=== PATIENT | female | born 1965 | race Two or more races ===

== ENCOUNTER → 2020-06-03 14:22 | Outpatient (BNVA) | payer OTHER, SELFPAY | PROVIDERS: Visit Provider Physician Assistant | DX: S39.012A Strain of muscle, fascia and tendon of lower back, initial encounter (principal); X58.XXXA Exposure to other specified factors, initial encounter | CPT/HCPCS: 99202 ==

== ENCOUNTER → 2020-06-06 15:16 | Outpatient (BNVA) | payer OTHER, SELFPAY | PROVIDERS: Visit Provider Physician Assistant Medical | DX: S39.012A Strain of muscle, fascia and tendon of lower back, initial encounter (principal); X58.XXXA Exposure to other specified factors, initial encounter | CPT/HCPCS: 99213 ==

== ENCOUNTER 2021-04-15 11:01 | Outpatient (REF) | payer OTHER, SELFPAY ==
[2021-04-15 12:38] LABS: COVID-19 Test Positive (Negative); IDNOW Serial# 16C4AD1C
== END 2021-04-15 11:02 | disposition home or self-care (01) ==
LOC: HO.LAB 11:01
PROVIDERS: Visit Provider Internal Medicine
DX: Z20.822 Contact with and (suspected) exposure to COVID-19 (principal)
CPT/HCPCS: 36415; 87635; C9803

== ENCOUNTER 2022-04-13 08:03 | Emergency (ER) | payer OTHER, SELFPAY ==
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
[2022-04-13 08:32] VITALS: BP 141/98; PULSE 75; RESP 18; TEMP 36.4; O2SAT 98; BMI 29.2
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
--- OUTSIDE RECORDS SUMMARY | 2022-04-13 10:13 | XMS_ITS | Continuity of Care Document ---
:1965 Author Organization [facility] enter/[facility] [place] Address Unavailable , Care Team Providers Name Role Phone Not on Staff, PCP Primary Care Physician Unavailable Encounter [facility] [place] Date(s): 04/07/21 - 05/07/21 [facility] Allergies, Adverse Reactions, Alerts Substance Reaction Severity Status aspirin rash Active Immunizations Given and Recorded Vaccine Date Status Refusal Reason influenza virus vaccine, inactivated1 01/22/15 Given influenza virus vaccine, inactivated2 02/03/12 Given influenza virus vaccine, inactivated3 03/29/11 Given influenza virus vaccine, inactivated4 01/29/09 Given influenza virus vaccine, inactivated5 03/26/08 Given influenza virus vaccine, inactivated6 03/20/03 Given influenza virus vaccine, inactivated7 01/18/02 Given influenza virus vaccine, inactivated8 03/20/01 Given tetanus/diphtheria/pertussis, acel(Tdap)9 09/15/11 Given hepatitis B adult [id number] 08/04/04 Given hepatitis B adult [id number] 06/18/04 Given hepatitis B adult [id number] 06/18/04 Given pneumococcal 23-valent 06/18/04 Given 1Result Comment: [01/22/2015] Ordered by [id number] Note: VIS10/18/11 [id number] Admin Note: VIS01/17/09 [id number] Note: VIS 11/09/07 [id number] Note: vis 11/09/07, [id number] Note: administered by [id number] Note: administered by RN8 Admin Note: administered by [id number] Note: VIS 09/01/06 [id number] Note: administered by [id number] Note: administered by [id number] Note: administered by [id number] Note: ADMINISTERED BY R.N Medications albuterol CFC free 90 mcg/inh inhalation aerosol 2 puffs, Inhalation, 4 times a day, PRN Wheezing/Shortness of Breath, # 18 Gm, 1 Refills, Maintenance, 07/09/14 10:47:56, Aerosol, 2 puffs Inhalation 4 times a day,PRN:Wheezing/Shortness of Breath Start Date: 07/09/14 Status: Ordered Problem List Condition Effective Dates Status Health Status Informant Asthma(Confirmed)1 Active Ex-cigarette smoker(Confirmed) 04/17/12 Active 1PFTs: 11-30-2004 Social History Social History Type Response Smoking Status Never smoker entered on: 06/14/14 Sex
== END 2022-04-13 10:33 | disposition home or self-care (01) ==
PROVIDERS: Emergency Provider Student in an Organized Health Care Education/Training Program
DX: S16.1XXA Strain of muscle, fascia and tendon at neck level, initial encounter (principal); R51.9 Headache, unspecified; M54.2 Cervicalgia; V44.5XXA Car driver injured in collision with heavy transport vehicle or bus in traffic accident, initial encounter; Y93.9 Activity, unspecified; Y92.410 Unspecified street and highway as the place of occurrence of the external cause; Y99.9 Unspecified external cause status
CPT/HCPCS: 70450; 72125; 99283; 99284

== ENCOUNTER 2022-08-28 21:02 | Emergency (ER) | payer OTHER, SELFPAY ==
--- NOTE | 2022-08-28 | ECG_ITS ---
Test Reason : chest pain Blood Pressure : / mmHG Vent. Rate : 071 BPM Atrial Rate : 071 BPM P-R Int : 128 ms QRS Dur : 074 ms QT Int : 376 ms P-R-T Axes : 056 010 036 degrees QTc Int : 408 ms Normal sinus rhythm Possible Left atrial enlargement Borderline ECG When compared with ECG of 14-FEB-2019 10:45, No significant change was found Referred By: Generic ED Physician Electronically Signed By:AIDA OROSCO
--- NOTE | ~2022-08-28 | XR_ITS ---
EXAMINATION: XR CHEST CLINICAL INFORMATION: Chest pain COMPARISON: None available. TECHNIQUE: Frontal view of the chest was obtained. FINDINGS: The lungs are clear with no focal consolidation. No evidence of pneumothorax, pulmonary edema, or pleural effusions. The cardiomediastinal silhouette is unremarkable. No acute osseous findings. XR/XR chest 1V IMPRESSION: No acute cardiopulmonary findings.
[2022-08-28 21:13] VITALS: BP 122/86; PULSE 73; RESP 18; TEMP 36.4; O2SAT 99; BMI 28.3
[2022-08-28 21:36] LABS: MANUAL DIFF FLAG NO
[2022-08-28 21:39] LABS: Basophils Percent Auto 0.4 % (0-2); Eosinophils Absolute Auto 0.4 X10*3/uL (0.0-0.4); Eosinophils Percent Auto 3.8 % (0-4); Hematocrit 36.5 % (37.0-47.0); Hemoglobin 12.4 g/dl (12.0-16.0); Imm Gran Abs Auto 0.03 X10*3/uL (0.00-0.03); Imm Gran Pct Auto 0.3 % (0.0-0.4); Lymphocytes Absolute Auto 3.3 X10*3/uL (1.2-4.9); Lymphocytes Percent Auto 33.1 % (20-40); Mean Corpuscular Volume 82.4 fL (80.0-98.0); Mean Platelet Volume 11.9 fL (9.4-12.3); Monocytes Absolute Auto 0.8 X10*3/uL (0.1-1.2); Monocytes Percent Auto 7.5 % (2-11); Neutrophils Absolute Auto 5.5 x10*3/uL (2.0-8.3); Neutrophils Percent Auto 54.9 % (45-73); Platelet Count 250 X10*3/uL (160-400); Red Blood Count 4.43 X10*6/uL (4.20-5.50); Red Cell Distribution Width 13.2 % (11.0-16.0)
[2022-08-28 21:52] LABS: Anion Gap 12 (12-20); Blood Urea Nitrogen 16 mg/dL (9-16); Calcium 9.3 mg/dL (8.4-10.2); Carbon Dioxide 27 mmol/L (22-29); Chloride 105 mmol/L (96-108); Creatinine Clr Calc Pharmacy 73.1; Estimated Glomerular Filt Rate > 60; Glucose Random 121 mg/dL (60-115); Potassium 3.8 mmol/L (3.3-5.1); Sodium 140 mmol/L (135-145)
--- NOTE | 2022-08-28 21:57 | ED_ITS ---
HPI - Chest Pain General Chief Complaint: Chest Pain Stated Complaint: Chest pain/left arm Time Seen by Provider: 08/28/22 21:42 History of Present Illness HPI narrative: Patient is a 57-year-old female with a history diabetes presents today with having chest pain since approximately 10:00. The pain is constant it is mid chest. Question radiation. No shortness of breath no diaphoresis. Feels a tightness in the chest. Not made worse with deep breath. No leg swelling. No history of blood clots. Patient is from home. No history of risk stratification done in the past. The pain is constant not affected by movement. Not affected by exertion. No history of diabetes, hypertension, high cholesterol. No history of smoking no history of heart attack in the past Related Data Previous Rx's Medication Instructions Recorded cyclobenzaprine 10 mg tablet 10 mg PO TID PRN muscle spasm #14 04/13/22 tabs prednisone 20 mg tablet 40 mg PO DAILY #6 tabs 04/13/22 pantoprazole 40 mg tablet,delayed 40 mg PO DAILY #14 tabs 08/29/22 release (Protonix) Allergies Allergy/AdvReac Type Severity Reaction Status Date / Time aspirin [Aspirin] Allergy Mild RASH Verified 08/28/22 21:26 Review of Systems Review of Systems: Positive chest pain Yes all other systems are reviewed and are negative [facility] Past Medical History Attestation statement: The following information was validated with the patient. Social History Social History Advance Directives: No Advance Directives Information Provided: Yes Physical Exam Vital Signs: Vital Signs: Last Vital Signs Temp 97.9 F 08/28/22 23:23 Pulse 67 08/28/22 23:23 Resp 16 08/28/22 23:23 BP 106/72 08/28/22 23:23 Pulse Ox 97 08/28/22 23:23 O2 Del Method Room Air 08/28/22 23:23 BMI result Body Mass Index 28.3 Appearance: Alert. Oriented X3. No acute distress. Eyes: Pupils equal, round and reactive to light. ENT: Pharynx normal. Neck: Normal inspection. Neck supple. No lymph nodes noted. No crepitus CVS: Normal heart rate and rhythm. Pulses normal. Normal S1 and S2 Respiratory: No respiratory distress. Breath sounds normal. No Wheezing. No rales Abdomen: Soft and nontender. No rigidity. No distention. good BS x4 Skin: Skin warm and dry. Normal skin color. Normal skin turgor. Extremities: No lower extremity edema. Neurovascular intact to all extremities. No Lacerations. No Rash Neuro: Oriented X 3. No motor deficit. No sensory deficit. Moving all extermities. No slurred speech Medications Administered Discontinued Medications Generic Name Dose Route Start Last Admin Trade Name Freq PRN Reason Stop Dose Admin Al Hydroxide/Mg Hydroxide 30 ml 08/28/22 22:15 08/28/22 22:33 Magnesium Hydrox/Alum Hydrox 30 Ml Oral.Susp PO 08/28/22 22:16 30 ml ONCE ONE Administration Medical Decision Making Medical Decision Making [facility] Narrative: My interpretation patient's EKG showed a sinus pattern heart rate is 70 RI QRS QT within normal limits there is no acute ST segment elevation noted. Patient's chest pain atypical for ACS. Two sets of cardiac enzymes were negative. In the setting of normal EKG. No significant cardiac risk. Patient' s heart score less than 3. Will have patient follow-up on an outpatient basis. Patient's chest x-ray showed no evidence of pneumonia pneumothorax. Patient's history not consistent with having pulmonary emboli. Will discharge patient home. Lab Data [facility] Lab Attestation statement: I reviewed the patient's lab results. 08/28/22 21:26 08/28/22 21:26 Labs: Lab Results 08/28/22 08/28/22 08/28/22 Range/Units 21:26 21:26 21:26 WBC 10.0 (4.8-10.8) X10*3/uL RBC 4.43 (4.20-5.50) X10*6/uL Hgb 12.4 (12.0-16.0) g/dl Hct 36.5 L (37.0-47.0) % MCV 82.4 (80.0-98.0) fL MCH 28.0 (27.0-33.0) pg MCHC 34.0 (31.0-35.0) g/dl RDW 13.2 (11.0-16.0) % Plt Count 250 (160-400) X10*3/uL MPV 11.9 (9.4-12.3) fL Immature Gran % (Auto) 0.3 (0.0-0.4) % Neut % (Auto) 54.9 (45-73) % Lymph % (Auto) 33.1 (20-40) % [place] % (Auto) 7.5 (2-11) % Eos % (Auto) 3.8 (0-4) % Baso % (Auto) 0.4 (0-2) % Lymph # (Auto) 3.3 (1.2-4.9) X10*3/uL [place] # (Auto) 0.8 (0.1-1.2) X10*3/uL Eos # (Auto) 0.4 (0.0-0.4) X10*3/uL Baso # (Auto) 0.0 (0.0-0.2) X10*3/uL Abs Immat Gran (auto) 0.03 (0.00-0.03) X10*3/uL Absolute Neuts (auto) 5.5 (2.0-8.3) x10*3/uL Absolute Nucleated RBC 0.000 (0.0-0.012) X10*3/uL Nucleated RBC % (auto) 0.0 (0.0-0.2) /100WBC Sodium 140 (135-145) mmol/L Potassium 3.8 (3.3-5.1) mmol/L Chloride 105 (96-108) mmol/L Carbon Dioxide 27 (22-29) mmol/L Anion Gap 12 (12-20) BUN 16 (9-16) mg/dL Creatinine 0.82 (0.5-1.4) mg/dL Estim Creat Clear Calc 73.1 Estimated GFR > 60 POC Glucose (60-115) mg/dL Random Glucose 121 H (60-115) mg/dL Calcium 9.3 (8.4-10.2) mg/dL Troponin I High Sens < 2.7 (<3.5-17.0) ng/L 08/28/22 08/28/22 Range/Units 22:08 23:31 WBC (4.8-10.8) X10*3/uL RBC (4.20-5.50) X10*6/uL Hgb (12.0-16.0) g/dl Hct (37.0-47.0) % MCV (80.0-98.0) fL MCH (27.0-33.0) pg MCHC (31.0-35.0) g/dl RDW (11.0-16.0) % Plt Count (160-400) X10*3/uL MPV (9.4-12.3) fL Immature Gran % (Auto) (0.0-0.4) % Neut % (Auto) (45-73) % Lymph % (Auto) (20-40) % [place] % (Auto) (2-11) % Eos % (Auto) (0-4) % Baso % (Auto) (0-2) % Lymph # (Auto) (1.2-4.9) X10*3/uL [place] # (Auto) (0.1-1.2) X10*3/uL Eos # (Auto) (0.0-0.4) X10*3/uL Baso # (Auto) (0.0-0.2) X10*3/uL Abs Immat Gran (auto) (0.00-0.03) X10*3/uL Absolute Neuts (auto) (2.0-8.3) x10*3/uL Absolute Nucleated RBC (0.0-0.012) X10*3/uL Nucleated RBC % (auto) (0.0-0.2) /100WBC Sodium (135-145) mmol/L Potassium (3.3-5.1) mmol/L Chloride (96-108) mmol/L Carbon Dioxide (22-29) mmol/L Anion Gap (12-20) BUN (9-16) mg/dL Creatinine (0.5-1.4) mg/dL Estim Creat Clear Calc Estimated GFR POC Glucose 132 H (60-115) mg/dL Random Glucose (60-115) mg/dL Calcium (8.4-10.2) mg/dL Troponin I High Sens < 2.7 (<3.5-17.0) ng/L Independent Interpretation I performed an independent interpretation of an: EKG Interpretation: My interpretation patient's EKG showed a sinus pattern heart rate is 70 RI QRS QT within normal limits there is no acute ST segment elevation Radiology Impression Discussion of test interpretation with radiology: I have reviewed the radiologist's reading. External Record Review External record reviewed: Inpatient record Discharge Plan Discharge Clinical Impression: Chest pain Patient Disposition: Home, Self-Care Instructions: Chest Pain (DC) Prescriptions: New pantoprazole [Protonix] 40 mg tablet,delayed release (DR/EC) 40 mg PO DAILY Qty: 14 0RF No Action cyclobenzaprine 10 mg tablet 10 mg PO TID PRN (Reason: muscle spasm) Qty: 14 0RF prednisone 20 mg tablet 40 mg PO DAILY Qty: 6 0RF Referrals: Candido Mirza MD [Physician] - 08/31/22
[2022-08-28 22:05] VITALS: BP 113/78; PULSE 70; RESP 18; TEMP 36.6; O2SAT 98
[2022-08-28 22:13] LABS: Glucose, Whole Blood 132 mg/dL (60-115)
[2022-08-28 22:13] LABS: Troponin-I High Sensitivity < 2.7 ng/L (<3.5-17.0)
[2022-08-28] MEDS: Magnesium Hydrox/Alum Hydrox 30 ML ORAL.SUSP PO (22:33)
[2022-08-28 23:23] VITALS: BP 106/72; PULSE 67; RESP 16; TEMP 36.6; O2SAT 97
[2022-08-29 00:15] LABS: Troponin-I High Sensitivity < 2.7 ng/L (<3.5-17.0)
== END 2022-08-29 00:41 | disposition home or self-care (01) ==
PROVIDERS: Emergency Provider Emergency Medicine Emergency Medical Services
DX: R07.9 Chest pain, unspecified (principal); Z79.899 Other long term (current) drug therapy
CPT/HCPCS: 36415; 71045; 80048; 82947; 84484; 85025; 93005; 99283; 99284

== ENCOUNTER 2023-11-06 12:59 | Emergency (ER) | payer OTHER, SELFPAY ==
--- NOTE | ~2023-11-06 | CT_ITS ---
EXAMINATION: CT ABDOMEN AND PELVIS WITHOUT CONTRAST CLINICAL INFORMATION: Left lower quadrant and left flank pain COMPARISON: None available. TECHNIQUE: Multidetector volumetric imaging was performed from the superior aspect of the liver through the pubic symphysis. Sagittal and coronal reformatted images were obtained on the technologist's workstation. This CT examination was performed using dose optimization techniques as appropriate, variously including the following: *Automated exposure control *Adjustment of mA and/or kV according to patient size (this includes techniques or standardized protocols for targeted exams where dose is matched to indication/reason for exam; i.e. extremities or head) *Use of iterative reconstruction technique DLP: 506 mGy-cm FINDINGS: LUNG BASES: The visualized lung bases are unremarkable. LIVER, GALLBLADDER, AND BILIARY TREE: The liver is normal in size, shape, and attenuation. No focal hepatic lesion or biliary ductal dilatation is present. The gallbladder is unremarkable with no evidence of radiopaque gallstones, gallbladder wall thickening, or obvious pericholecystic inflammatory changes. PANCREAS: Unremarkable. SPLEEN: Unremarkable. ADRENAL GLANDS: Unremarkable. KIDNEYS AND URETERS: There is congenital crossed fused renal ectopia with kidneys seen in the right abdomen. The lower pole moiety ureter crosses into the left side of the abdomen/pelvis entering into the left side of the urinary bladder. No hydronephrosis, hydroureter, or calculi seen. No perinephric stranding. BLADDER: Decompressed. No renal calcifications GASTROINTESTINAL TRACT: The small and large bowel are unremarkable. The appendix is unremarkable. There is mild mesenteric fat stranding within the left upper quadrant of the abdomen with nonspecific small mesenteric lymph nodes. ABDOMINAL WALL: No significant hernia is appreciated. LYMPH NODES: Normal. VASCULAR: Unremarkable. PELVIC VISCERA: The uterus and adnexa are unremarkable. OSSEOUS STRUCTURES: Unremarkable. CT/CT abdomen pelvis wo IV con IMPRESSION: 1. No acute process. 2. 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 The lower pole moiety ureter crosses into the left side of the abdomen/pelvis entering into the left side of the urinary bladder. No hydronephrosis or nephrolithiasis. 3. Mild mesenteric fat stranding in the left upper quadrant of the abdomen with small mesenteric lymph nodes. Findings are nonspecific but can be seen in the setting of mesenteric panniculitis.
[2023-11-06 13:06] VITALS: BP 138/87; PULSE 84; RESP 17; TEMP 36.1; O2SAT 93; BMI 28.9
--- NOTE | 2023-11-06 13:08 | ED.GENADULT ---
HPI - General Adult General Chief complaint: Urogenital-Female Stated complaint: ?uti Time Seen by Provider: 11/06/23 13:27 Source: patient Mode of arrival: ambulatory Limitations: no limitations History of Present Illness ED Provider: leonides ISLAS narrative: Patient is a 58-year-old female presenting to the emergency department with complaint of lower back pain radiating to left lower quadrant of abdomen for the past 2 days. She went to urgent care yesterday and was diagnosed with a muscle strain, prescribed a muscle relaxer and advised to use NSAIDs. Patient states that she asked for urinalysis at that appointment but was refused by provider. States she took the muscle relaxer and ibuprofen without any relief of pain. She tested herself with a home urine testing kit which showed she was positive for UTI. She denies any fevers. Denies any nausea or vomiting. Reports history of kidney stones in the past. Reports only urinary symptom is that her urine is darker than normal. MD complaint: back and abdominal pain Onset (ago): day(s) Location: back Radiation: abdomen Severity: severe Severity scale (1-10): 7 Quality: sharp Pain Consistency: constant Relieving factors: none Exacerbating factors: other (palpation) Treatments prior to arrival: NSAID and other Related Data Previous Rx's ?Medication ?Instructions ?Recorded cyclobenzaprine 10 mg tablet 10 mg PO TID PRN muscle spasm #14 04/13/22 tabs prednisone 20 mg tablet 40 mg (2 x 20 mg) PO DAILY #6 tabs 04/13/22 pantoprazole 40 mg tablet,delayed 40 mg PO DAILY #14 tabs 08/29/22 release (Protonix) lidocaine 5 % topical patch 1 patch topical DAILY #15 ea 11/06/23 Allergies Allergy/AdvReac Type Severity Reaction Status Date / Time aspirin [Aspirin] Allergy Mild RASH Verified 11/06/23 13:10 Review of Systems Review of Systems: As per HPI. Yes all other systems are reviewed and are negative Constitutional: Constitutional: Reports as per HPI [facility] Social History Social History Advance Directives: No Advance Directives Information Provided: No Do you have a plan to hurt others: No Plan Physical Exam ED Vital Signs: Vital Signs - 24 hr 11/06/23 13:06 Temperature 96.9 F Pulse Rate 84 Respiratory Rate 17 Blood Pressure 138/87 Pulse Oximetry 93 Oxygen Delivery Method Room Air BMI result Body Mass Index 28.9 Vital signs have been reviewed and appear to be correct. Blood pressure normal. Heart rate normal. Respiratory rate normal. Temperature normal. Oxygen saturation normal. Const General: cooperative, healthy appearing and no acute distress Orientation/consciousness: oriented to person, oriented to place, oriented to time and patient oriented x3 Limitations: no limitations HENMT Head: Yes normocephalic and Yes atraumatic Ears: external ears normal General nose exam: Normal external nose present Face and sinus: Yes face symmetric Mouth: oropharynx normal and moist mucous membranes Throat: Yes uvula midline Eyes Pupils: Equal, round and reactive pupils present Neck Neck: Yes normal visual inspection and Yes supple Resp Effort & Inspection: normal respiratory effort and able to speak in complete sentences Auscultation: clear to auscultation bilaterally Cardio Rate: regular rate Rhythm: regular rhythm Heart sounds: S1 normal heart sound present and S2 normal heart sound present GI Palpation (GI): Soft to palpation, Tenderness to palpation present (GI) in the LLQ, no guarding and No Rebound tenderness present Auscultation: normoactive bowel sounds General: Yes no CVA tenderness Back/Spine/Pelvis Back: no CVA tenderness Skin General skin exam: elasticity normal and turgor normal Neuro General: oriented to person, oriented to place, oriented to time, patient oriented x3, moves all extremities, no focal motor deficits and CN's II-XI intact bilaterally Cranial nerves: Yes Equal, round and reactive pupils present Cognition (Neuro): normal cognition Extrem General: Yes full ROM, Yes no pedal edema and Yes no calf tenderness Psych Mental Status: mental status grossly normal Affect: normal affect Thought process: Normal thought process present Course Course Course Narrative: This is rapid medical exam. Deferred additional HPI, ROS, PE to primary provider. 58 yo female with history of DM, LEIGH here with complaints of lower back pain, urinary symptoms. Took home test which was positive for UTI. Will obtain UA VSS Medications Administered Discontinued Medications Generic Name Dose Route Start Last Admin Trade Name Freq PRN Reason Stop Dose Admin Ketorolac Tromethamine 30 mg 11/06/23 13:41 11/06/23 13:57 Ketorolac Tromethamine 30 Mg/Ml Vial IM 11/06/23 13:42 30 mg ONCE ONE Administration Medical Decision Making Medical Decision Making [facility] Narrative: Patient is a 58-year-old female presenting to the emergency department with complaint of lower back pain radiating to left lower quadrant of abdomen for the past 2 days. On exam patient is awake, A+Ox3, VS WNL, afebrile, normal neurological exam without focal deficits, physical exam findings as above. Given reported symptoms and physical exam findings, initial differential includes UTI, lumbar strain, renal/ureteral calculi. Urinalysis is without evidence of infection, no blood. 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 My interpretation is in agreement with the radiologist's interpretation. Patient updated on results. She reports that she is aware of her congenital kidney abnormality from previous imaging. Advised patient to continue using Flexeril and ibuprofen as previously advised, will also send prescription for lidocaine patches. Instructed patient to follow-up with PCP or return to an urgent care or ED if symptoms worsen over the next few days. Patient states she is traveling to [place] tomorrow. Patient advised to seek medical care at an urgent Care ER there if symptoms worsen. Return precautions discussed at bedside. Patient verbalized understanding of and agreement with plan. Differential Diagnosis Differential Diagnoses: The differential diagnosis associated with the presentation includes As per [facility]. Admission/Observation Consideration of admission/observation: Escalation of care including admission/observation considered Patient would have been admitted to the hospital had their work up had any findings where hospital admission was appropriate and their clinical presentation warranted hospital admission. Lab Data [facility] Lab Attestation statement: I reviewed the patient's lab results. As per [facility]. 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 Radiology Impression Discussion of test interpretation with radiology: I have reviewed the radiologist's reading. Radiologist Impression: CT/CT abdomen pelvis wo IV con IMPRESSION: 1. No acute process. 2. 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 The lower pole moiety ureter crosses into the left side of the abdomen/pelvis entering into the left side of the urinary bladder. No hydronephrosis or nephrolithiasis. 3. Mild mesenteric fat stranding in the left upper quadrant of the abdomen with small mesenteric lymph nodes. Findings are nonspecific but can be seen in the setting of mesenteric panniculitis. External Record Review External record reviewed: Inpatient record, Office record and Outpatient record Prescription Management I considered prescription management with: Pain Medication Discharge Plan Discharge Clinical Impression: Back pain, Abdominal pain Patient Disposition: Home, Self-Care Instructions: Abdominal Pain (ED), Back Pain (ED) Additional Instructions: You were evaluated in the emergency department today for back pain radiating to your abdomen. Your urinalysis did not show evidence of a urinary tract infection. Your CT scan did not show evidence of a kidney stone or other conditions requiring emergent medical treatment at this time. We recommend that you continue taking the previously prescribed muscle relaxers as well as ibuprofen. You are being prescribed topical lidocaine patches which you can wear for up to 12 hours in a 24 hour period. Do not apply heat directly over the patches. Please follow-up with your primary care provider. Return to the emergency department if you develop worsening pain, persistent vomiting, fever, difficulty or inability to urinate or any other concerning symptoms. Prescriptions: New lidocaine 5 % adhesive patch,medicated 1 patch topical DAILY Qty: 15 0RF Rx Instructions: leave on most painful area for up to 12 hrs No Action cyclobenzaprine 10 mg tablet 10 mg PO TID PRN (Reason: muscle spasm) Qty: 14 0RF prednisone 20 mg tablet 40 mg PO DAILY Qty: 6 0RF pantoprazole [Protonix] 40 mg tablet,delayed release (DR/EC) 40 mg PO DAILY Qty: 14 0RF Print Language: Slovenian
[2023-11-06 13:25] LABS: Appearance Urine Clear; Color Urine Yellow; Glucose Urine UA Negative (Negative); Leukocyte Esterase Urine Negative (Negative); Nitrite Urine Negative (Negative); PH 6.5 (5.0-9.0); Specific Gravity - Urine >= 1.030 (1.005-1.025); Urine Blood Negative (Negative); Urine Ketones Trace mg/dL (Negative); Urine Protein Negative (Neg-Trace)
[2023-11-06] MEDS: Ketorolac Tromethamine 30 MG/ML VIAL IM (13:57)
[2023-11-06 16:07] VITALS: BP 129/94; PULSE 79; RESP 18; TEMP 36.7; O2SAT 99
== END 2023-11-06 16:08 | disposition home or self-care (01) ==
PROVIDERS: Nurse Practitioner Family; Emergency Provider Emergency Medicine
DX: M54.50 Low back pain, unspecified (principal); R10.32 Left lower quadrant pain; Z79.899 Other long term (current) drug therapy
CPT/HCPCS: 74176; 81003; 96372; 99283; 99284; J1885

== ENCOUNTER 2023-11-19 23:17 | Emergency (ER) | payer OTHER, SELFPAY ==
--- NOTE | ~2023-11-19 | US_ITS ---
EXAMINATION: US VENOUS ULTRASOUND WITH DOPPLER LOWER EXTREMITY, LEFT CLINICAL INFORMATION: Acute pain and swelling COMPARISON: None available. TECHNIQUE: Ultrasound of the deep veins is performed from the hip to the calf with compression sonography and color and pulse Doppler assessment. Spectral analysis with color-flow imaging is performed. FINDINGS: There is normal venous compression and respiratory variation and augmented flow. The visualized common femoral vein, superficial femoral vein, profunda femoral vein, popliteal vein, and the trifurcation region shows no evidence of deep venous thrombosis. There is no significant popliteal fossa cyst. In the region of reported pain in the medial left calf there is a fluid collection measuring 6.2 x 0.6 x 2.6 cm. No significant surrounding blood flow is seen. Edema is also noted at the left ankle. If the patient's symptoms persist, followup ultrasound in 5 days 7 days might be of value to exclude proximal propagation from a non-visualized calf vein. US/US venous duplex LE IMPRESSION: 1. No DVT demonstrated in the left lower extremity. 2. Fluid collection in the medial left calf measuring 6.2 x 0.6 x 2.6 cm. Considerations include hematoma, seroma, or potentially abscess in the proper clinical setting though no significant surrounding flow is seen.
--- NOTE | ~2023-11-19 | XR_ITS ---
EXAMINATION: XR TIBIA AND FIBULA, LEFT CLINICAL INFORMATION: Pain COMPARISON: None available. TECHNIQUE: AP and lateral views of the left tibia and fibula were obtained. FINDINGS: Alignment at the knee and ankle appears anatomic. No acute fracture is seen. No significant focal soft tissue abnormality identified. XR/XR tibia fibula LT 2V IMPRESSION: No acute findings identified.
[2023-11-19 23:36] VITALS: BP 106/73; PULSE 93; RESP 16; TEMP 36.6; O2SAT 97; BMI 28.5
--- NOTE | 2023-11-20 02:44 | ED.GENADULT ---
HPI - General Adult General Chief complaint: Extremity Injury, Lower Stated complaint: left lower leg pain Time Seen by Provider: 11/20/23 02:44 History of Present Illness ED Provider: MATTEO ISLAS narrative: The patient is a 58-year-old female who says that she was walking her dog 3 days ago when she felt a sudden onset of pain in the back of her left calf like she has been struck with something. She had instant pain in the middle of the calf. She looked in saw that nothing at struck her in the middle of the calf. She has had trouble bearing weight on that foot since then. Related Data Previous Rx's ?Medication ?Instructions ?Recorded cyclobenzaprine 10 mg tablet 10 mg PO TID PRN muscle spasm #14 04/13/22 tabs prednisone 20 mg tablet 40 mg (2 x 20 mg) PO DAILY #6 tabs 04/13/22 pantoprazole 40 mg tablet,delayed 40 mg PO DAILY #14 tabs 08/29/22 release (Protonix) lidocaine 5 % topical patch 1 patch topical DAILY #15 ea 11/06/23 Allergies Allergy/AdvReac Type Severity Reaction Status Date / Time aspirin [Aspirin] Allergy Mild RASH Verified 11/19/23 23:37 Review of Systems Review of Systems: Yes all other systems are reviewed and are negative [facility] Social History Social History Smoked in Last 30 Days: No Use of substances other than those prescribed or required for medical reasons: No Advance Directives: No Advance Directives Information Provided: No Do you have a plan to hurt others: No Plan Physical Exam ED Vital Signs: Vital Signs - 24 hr 11/19/23 23:36 11/20/23 04:04 11/20/23 04:28 Temperature 97.8 F 98.0 F 98.0 F Pulse Rate 93 85 85 Respiratory Rate 16 18 18 Blood Pressure 106/73 120/87 120/87 Pulse Oximetry 97 95 95 Oxygen Delivery Method Room Air Room Air Room Air BMI result Body Mass Index 28.5 Const Other: The patient is awake, alert, pleasant, cooperative. She does not appear in acute distress although she seems uncomfortable when she moves her left leg. HENMT Other: Face is symmetrical, mucous membranes moist Eyes Other: Pupils are round equal, conjunctivae clear Resp Effort & Inspection: normal respiratory effort Auscultation: clear to auscultation bilaterally Cardio Rate: regular rate Rhythm: regular rhythm Heart sounds: S1 normal heart sound present and S2 normal heart sound present Skin Other: The skin of the left lower leg is largely unremarkable. There are a few patches of scattered petechiae over the lower christiansen. The calf itself does not have any skin abnormalities. Neuro Other: The patient is awake and alert with a normal mental status. Cranial nerves are grossly intact. She has pain with moving the left leg but seems to be grossly neurovascularly intact in the left foot. Extrem Other: The left foot has a good dorsalis pedis pulse. The appearance of the left foot is normal. There is significant tenderness with palpation of the left calf. This is mostly on the medial aspect of the calf. Maximum tenderness seems to be at around shelter between the knee and the ankle. I do not appreciate any definite defect in the Achilles tendon. Procedures Orthopedic Splinting/Casting Injury #1: Side: left Lower Extremity Injury Location: lower leg Lower Extremity Immobilizer: posterior splint Other Orthopedic Equipment: crutches Additional Comments: Splint was fashioned using cast padding, Orthoglass, and Clay bandages. Medical Decision Making Medical Decision Making MDM Narrative: The patient is a 58-year-old female who developed sudden spontaneous pain in the back of her left calf while walking her dog 3 days ago. She describes a sensation of being struck or shot in the back of the leg. This history is suggestive of something like an Achilles tendon rupture. On exam she does not have any apparent Achilles tendon defect. I suspect that she probably has some kind of calf muscle tear like a gastrocnemius tear. An x-ray of the tibia and fibula is negative. An ultrasound of the left leg shows no DVT. There is a fluid collection in the calf which I suspect is probably a hematoma. The patient was placed in a short-leg splint with some degree of plantar flexion (something like a equinus). She will be given crutches and should stay off the leg and follow up with Orthopedics this week. Discharge Plan Discharge Clinical Impression: Gastrocnemius muscle rupture Patient Disposition: Home, Self-Care Instructions: Crutch Instructions (ED) Additional Instructions: I believe the use sustained a partial rupture to one of the muscles in your left calf. Your leg has been splinted to immobilize the ankle and allow the muscle to heal. You have been given crutches so you will not put weight on your left leg. For the next few days you should rest and elevate your left leg and stay off your feet as much as possible. You may use ibuprofen and acetaminophen as needed for pain. Please contact the orthopedic office on Tuesday morning to arrange an appointment this week for additional advice and management of this injury. Return to the emergency room if significantly worse. Prescriptions: No Action cyclobenzaprine 10 mg tablet 10 mg PO TID PRN (Reason: muscle spasm) Qty: 14 0RF prednisone 20 mg tablet 40 mg PO DAILY Qty: 6 0RF pantoprazole [Protonix] 40 mg tablet,delayed release (DR/EC) 40 mg PO DAILY Qty: 14 0RF lidocaine 5 % adhesive patch,medicated 1 patch topical DAILY Qty: 15 0RF Rx Instructions: leave on most painful area for up to 12 hrs Referrals: Kerri Spring MD [Physician] - (Calf muscle rupture, left) Interventions: ED Discharge Assessment Last Done: 11/20/23 04:28 Discharge Date/Time: 11/20/23 04:22 Print Language: Chinese
[2023-11-20 04:04] VITALS: BP 120/87; PULSE 85; RESP 18; TEMP 36.7; O2SAT 95
[2023-11-20 04:28] VITALS: BP 120/87; PULSE 85; RESP 18; TEMP 36.7; O2SAT 95
== END 2023-11-20 04:22 | disposition home or self-care (01) ==
PROVIDERS: Emergency Provider Emergency Medicine
DX: M62.462 Contracture of muscle, left lower leg (principal); R60.0 Localized edema; M79.605 Pain in left leg
CPT/HCPCS: 29515; 73590; 93971; 99283; 99284

== ENCOUNTER 2023-11-22 14:28 | Outpatient (AMB) | payer OTHER, SELFPAY ==
--- NOTE | 2023-11-22 14:29 | A.OFFVIS_ITS ---
Intake Visit Reasons: FC - LT gastrocnemius muscle rupture Intake Note: Magy is a 58 year old female who presents today for a evaluation of her left calf pain, DOI 11/17/23. Patient reports she felt a sharp pain in the back of her left calf like she has been struck with something. She states that she was running after her dog and she started to get a very sharp pain behind her calf. Patient mentioned thatr she was placed in a splint which caused her a lot of pain in her leg down to her ankle. Allergies aspirin [Aspirin] Allergy (Mild, Verified 11/22/23 14:29) RASH HPI HPI FC - LT gastrocnemius muscle rupture: Details: 58-year-old female who presents in the office today, as a new patient, for an evaluation of left lower extremity pain. The patient presented to the ED on 11/20/23 when she reported a sudden onset of pain, while walking her dog on 11/17/23, in the left calf and described it as if she had been struck by something. X-rays and ultrasound were obtained. She was placed in a posterior splint and supplied with crutches. ? ? While in the office today, the patient reports she was running after her dog when she began to have a sharp pain in the left lower extremity behind the left calf. She states in the ED she was placed in a splint which caused her an increased amount of pain radiating down the left leg into the left ankle. ? [facility] Social History (Updated 11/22/23 @ 14:33 by Inez Lewis) Alcohol intake: never Patient Tobacco Use Status: Never used Tobacco Current occupational status: employed Current occupation: automotive sales specialist Review of Systems Const All systems reviewed & are unremarkable except as noted in HPI and below Physical Exam Const General: cooperative and no acute distress Orientation/consciousness: patient oriented x3 Resp Effort & Inspection: normal respiratory effort and able to speak in complete sentences Cardio Peripheral pulses: Peripheral pulses 2+ throughout Skin General skin exam: no rashes or lesions noted Neuro General: patient oriented x3 Extrem Other: Left lower extremity: Resolving ecchymosis on the anterior aspect of the tibia extending distally to the left ankle. Mild edema along the medial malleolus. No tenderness to palpation over the medial malleolus. Tenderness with calf squeeze. Negative Irizarry?s. NVI.? Assessment & Plan Assessment & Plan (1) Strain of gastrocnemius muscle of left lower extremity: Code(s): S86.112A - Strain of other muscle(s) and tendon(s) of posterior muscle group at lower leg level, left leg, initial encounter Category: Medical Plan Ms. Loyola is a 58-year-old female who presents in the office today, as a new patient, for an evaluation of left lower extremity pain. The patient presented to the ED on 11/20/23 when she reported a sudden onset of pain, while walking her dog on 11/17/23, in the left calf and described it as if she had been struck by something. X-rays and ultrasound were obtained. She was placed in a posterior splint and supplied with crutches. ? ? While in the office today, the patient reports she was running after her dog when she began to have a sharp pain in the left lower extremity behind the left calf. She states in the ED she was placed in a splint which caused her an increased amount of pain radiating down the left leg into the left ankle.? ? I have recommend for the patient to work on gentle stretching. It was also recommended to use ice and anti-inflammitories. A referral to physical therapy was made. I do recommend for her to wear the walking boot, however, should this continue to cause her discomfort she can transition into a normal supportive sneaker. Follow-up will be PRN, or sooner if needed. ? ? X-rays of the tibia/fibula, obtained on 11/20/23, revealed: No acute findings identified.? ? Ultrasound of the left lower extremity, obtained on 11/20/23, revealed: ? 1. No DVT demonstrated in the left lower extremity.? 2. Fluid collection in the medial left calf measuring 6.2 x 0.6 x 2.6? cm. Considerations include hematoma, seroma, or potentially abscess in the proper clinical setting though no significant surrounding flow is seen.? Orders: Orders PT Evaluation and Treatment Today S86.112A - Strain of other muscle(s) and tendon(s) of posterior muscle group at lower leg level, left leg, initial encounter Patient Instructions: Scribed by Noy Zhang medical device sales consultant, for Rufina Blum PA-C on 11/22/2023 at 2:41 pm, EST.? Coding Level of Care Code New Pt Level 3 (08603) Diagnoses Strain of gastrocnemius muscle of left lower extremity S86.112A
== END 2023-11-22 14:59 | disposition home or self-care (01) ==
PROVIDERS: Visit Provider Physician Assistant
DX: S86.112A Strain of other muscle(s) and tendon(s) of posterior muscle group at lower leg level, left leg, initial encounter (principal)
CPT/HCPCS: 99203

== ENCOUNTER → 2023-11-22 14:28 | Outpatient (BNVA) | payer OTHER, SELFPAY | PROVIDERS: Visit Provider Physician Assistant ==